=== PATIENT | male | born 1965 | race Caucasian/White ===

== ENCOUNTER 2020-02-16 13:24 | Outpatient (CLI) | payer BC, SELFPAY ==
--- NOTE | ~2020-02-16 | MR_ITS ---
EXAMINATION: MR brain/brain stem wo con DATE: 02/16/2020 14:25 INDICATION: Dizziness. Anterior headache. TECHNIQUE: Magnetic resonance imaging (MRI) of the brain and brainstem was performed without intraven ous contrast. Sequences included sagittal and axial T1-weighted FSE, axial diffusion-weighted FS EPI, axial T2*-weighted GRE, axial T2-weighted FLAIR Propeller, and axial T2-weighted Propeller. Apparent diffusion coefficient (ADC) maps were created. COMPARISON: None. FINDINGS: There is no intracranial hemorrhage, acute infarction, or abnormal intracranial mass lesion . There are scattered areas of nonspecific increased T2-weighted signal intensity in the cerebral whi te matter, which is within normal limits for the patient's age. The ventricles are normal in size. Th e orbits are normal. The paranasal sinuses are clear. The mastoid air cells are normal. IMPRESSION: 1. Normal aging brain. Reviewed, dictated and finalized at location A. IMPRESSION: 1. Normal aging brain.
== END 2020-02-16 13:25 | disposition home or self-care (01) ==
PROVIDERS: PCP Family Medicine; Visit Provider Family Medicine
DX: R42 Dizziness and giddiness (principal)
CPT/HCPCS: 70551

== ENCOUNTER 2024-01-31 00:30 | Day surgery (SDC) | payer BC, SELFPAY ==
[2024-01-20 12:57] VITALS: BMI 25.7
[2024-01-31 06:27] VITALS: BP 122/72; PULSE 77; RESP 18; TEMP 36.1; O2SAT 97
[2024-01-31] MEDS: LACTATED RINGERS 1,000 ML 150 ML IV CONT (06:39)
--- NOTE | 2024-01-31 07:21 | WPDANESEPPF ---
Anes - Initial Pre Proc Eval Procedure: Operation Date: 01/31/24 07:30 Proposed Procedures p Screening Colonoscopy - Dallas Lima MD Date/Time: 01/31/24 07:21 Surgeon: Dallas Lima MD Pre Op Diagnosis: neoplasm screening Patient Data Age: 58 Gender: M Height: 1.88 m Weight: 89.4 kg Last Vital Signs Temp 97 F L 01/31/24 06:27 Pulse 77 01/31/24 06:27 Resp 18 01/31/24 06:27 BP 122/72 01/31/24 06:27 Pulse Ox 97 01/31/24 06:27 O2 Del Method Room Air 01/31/24 06:27 Allergies Allergy/AdvReac Type Severity Reaction Status Date / Time clavulanic acid Allergy Mild Rash Verified 01/31/24 06:26 cyclobenzaprine AdvReac Mild hoarse Verified 01/31/24 06:26 voice Home Medications Medication Instructions Recorded Confirmed Type rosuvastatin 5 mg tablet 5 mg PO DAILY #90 tabs 10/20/23 01/20/24 Rx sildenafil 50 mg tablet (Viagra) 50 mg PO DAILY PRN sexual activity 11/22/23 01/20/24 Rx #30 tabs Bacillus coagulans 2 billion 1 cap PO DAILY 01/20/24 01/20/24 History cell-calcium 140 mg capsule (Digestive Advantage Probiotic) cholecalciferol (vitamin D3) 50 100 mcg PO DAILY 01/20/24 01/20/24 History mcg (2,000 unit) tablet (Vitamin D3) glucosamine sulf dipot 2 cap PO DAILY 01/20/24 01/20/24 History chlr,msm,chond 550 mg-C 30 mg-geo 1 mg capsule (Glucosamine Chondroitin) Patient hx anesthesia problems: none Family hx anesthesia problems: none Results Review: All pre-operative results and documents have been reviewed as part of the pre-operative evaluation. [facility] Past Medical History Medical History Erectile dysfunction History of kidney stones Surgical History Surgical History History of lithotripsy Family History Family History Sibling Neuroblastoma Father Hypertension Mother Crohn's disease Social History Social History Smoking status: Never smoker Second hand tobacco smoke exposure: No Alcohol intake: current Substance use: never Substance use type: does not use Living arrangements: with family Occupation/Education: occupation Gender identity (if verbalized by the patient): Male Sexual Orientation (if Verbalized by the Patient): Straight or Heterosexual Spiritual care concerns: No Anes - Eval Final PreProcedure Day of Procedure 01/31/24 07:21 Patient weight: normal Heart: regular rate and rhythm Lungs: clear to auscultation Airway: Mallampati scale class II Neurological: alert and oriented Last oral intake: >/= 8 hours ASA classification: II Emergent: no Anesthetic plan: proceed Anesthesia type and monitoring: general GIVS and standard monitoring Results Review: All pre-operative results and documents have been reviewed as part of the pre-operative evaluation. Informed Consent: The patient's anesthetic plan and its attendant risks and benefits were discussed with the patient/family/POA. Questions were solicited and answers provided to the satisfaction of the patient/family/POA.
--- NOTE | 2024-01-31 07:30 | PM.HPGS ---
History of Present Illness History of Present Illness Consent: Risks, benefits, and alternatives have been discussed and questions answered. Patient agrees to proceed with procedure. Chief complaint: neoplasm screening Narrative: Clovis Arzate is a 58 year old male here for screening colonoscopy, last one about 10 years ago Review of Systems Review of Systems: All systems reviewed & are unremarkable except as noted in HPI and below PMFSH Past Medical History Medical History (Updated 01/31/24 @ 07:32 by Dallas Lima MD) Colon cancer screening Erectile dysfunction History of kidney stones Surgical History Surgical History History of lithotripsy Family History Family History Sibling Neuroblastoma Father Hypertension Mother Crohn's disease Social History Social History Smoking status: Never smoker Second hand tobacco smoke exposure: No Alcohol intake: current Substance use: never Substance use type: does not use Living arrangements: with family Occupation/Education: occupation Gender identity (if verbalized by the patient): Male Sexual Orientation (if Verbalized by the Patient): Straight or Heterosexual Spiritual care concerns: No Meds Home Medications and Allergies Home Medications Medication Instructions Recorded Confirmed Type rosuvastatin 5 mg tablet 5 mg PO DAILY #90 tabs 10/20/23 01/20/24 Rx sildenafil 50 mg tablet (Viagra) 50 mg PO DAILY PRN sexual activity 11/22/23 01/20/24 Rx #30 tabs Bacillus coagulans 2 billion 1 cap PO DAILY 01/20/24 01/20/24 History cell-calcium 140 mg capsule (Digestive Advantage Probiotic) cholecalciferol (vitamin D3) 50 100 mcg PO DAILY 01/20/24 01/20/24 History mcg (2,000 unit) tablet (Vitamin D3) glucosamine sulf dipot 2 cap PO DAILY 01/20/24 01/20/24 History chlr,msm,chond 550 mg-C 30 mg-geo 1 mg capsule (Glucosamine Chondroitin) Allergies Allergy/AdvReac Type Severity Reaction Status Date / Time clavulanic acid Allergy Mild Rash Verified 01/31/24 06:26 cyclobenzaprine AdvReac Mild hoarse Verified 01/31/24 06:26 voice Vital Signs Vital Signs - 24 hr 01/31/24 06:27 Temperature 97 F L Pulse Rate 77 Respiratory Rate 18 Blood Pressure 122/72 Pulse Oximetry 97 Oxygen Delivery Room Air Exam Const: General: comfortable and no acute distress HENMT: Face/Nose/Sinus: Normal nares present Eyes: General: appearance normal, both eyes and all related structures Neck: Neck: no JVD Resp: Auscultation: clear to auscultation bilaterally Cardio: Rate: regular rate Rhythm: regular rhythm GI: Inspection: non-distended GI Palp: Yes Soft to palpation Skin: General skin exam: normal color Neuro: General: gait normal Speech: normal speech Extrem: General: normal to inspection Psych: Mental Status: mental status grossly normal Assessment and Plan Assessment and plan (1) Colon cancer screening: Code(s): Z12.11 - Encounter for screening for malignant neoplasm of colon Status: Acute Assessment and Plan: colonoscopy
[2024-01-31 07:44] VITALS: BP 97/62; PULSE 74; RESP 18; O2SAT 97
[2024-01-31 07:54] VITALS: BP 97/63; PULSE 69; RESP 18; O2SAT 96
[2024-01-31 08:01] VITALS: BP 113/74; PULSE 67; RESP 18; O2SAT 97
== END 2024-01-31 08:15 | disposition home or self-care (01) ==
PROVIDERS: PCP Family Medicine; Visit Provider Internal Medicine Gastroenterology
PROC: 0DJD8ZZ Inspection of Lower Intestinal Tract, Via Natural or Artificial Opening Endoscopic (ICD-10-PCS; CPT 45378; principal; 2024-01-31 07:30)
DX: Z12.11 Encounter for screening for malignant neoplasm of colon (principal); K64.8 Other hemorrhoids
CPT/HCPCS: 45378; J2704; J7120

== ENCOUNTER 2024-03-03 06:45 | Emergency (ER) | payer BC, SELFPAY ==
--- NOTE | ~2024-03-03 | CT_ITS ---
EXAMINATION: CT abdomen pelvis wo con DATE: 03/03/2024 07:53 INDICATION: Left lower quadrant abdominal pain. TECHNIQUE: Computed tomography (CT) of the abdomen and pelvis was performed without intravenous contr ast. Automated exposure control and iterative reconstruction technique were employed. The dose-length product was 497.98 mGy-cm. COMPARISON: CT abdomen and pelvis 01/25/2019 FINDINGS: The visualized portions of the lung bases demonstrate minimal atelectasis. No pleural effus ion. The heart size is normal. No pericardial effusion. There is a small sliding hiatal hernia. The l iver, gallbladder, spleen, pancreas, adrenal glands, and right kidney are normal. There is a 2 mm sto ne in left kidney. There is mild left hydronephrosis and hydroureter. There is a 6 mm stone at left u reterovesicular junction. There is a small left inguinal hernia containing fat. The prostate is mildl y enlarged. There are no dilated loops of bowel. The appendix is normal. There are no pathologically enlarged lymph nodes. There is no free intraperitoneal fluid. There is mild thoracic and lumbar spond ylosis. IMPRESSION: 1. 6 mm stone at left ureterovesicular junction with mild left hydronephrosis and hydroureter. 2. 2 mm nonobstructing left kidney stone. Reviewed, dictated and finalized at location A. IMPRESSION: 1. 6 mm stone at left ureterovesicular junction with mild left hydronephrosis a nd hydroureter. 2. 2 mm nonobstructing left kidney stone.
[2024-03-03 06:51] VITALS: BP 139/95; PULSE 63; RESP 18; TEMP 36.6; O2SAT 100
[2024-03-03 07:04] LABS: Basophils Absolute Auto 0.1 K/mm3 (0.0-0.1); Basophils Percent Auto 0.7 % (0.2-1.2); Eosinophils Absolute Auto 0.3 K/mm3 (0-0.3); Eosinophils Percent Auto 3.4 % (0-4.4); Hematocrit 43.8 % (42.0-52.0); Hemoglobin 14.8 g/dL (14.0-18.0); Immature Granulocyte Absolute 0.02 K/mm3 (0.00-0.031); Immature Granulocyte Percent A 0.3 % (0-0.5); Lymphocytes Absolute Auto 2.14 K/mm3 (0.9-3.2); Lymphocytes Percent Auto 28.2 % (18.3-44.2); Mean Corpuscular HGB Conc 33.8 g/dl (32-36); Mean Corpuscular Hemoglobin 30.1 pg (26-34); Mean Corpuscular Volume 89.2 fl (80-100); Mean Platelet Volume 10.9 fl (7.4-10.4); Monocytes Absolute Auto 0.9 K/mm3 (0.1-0.6); Monocytes Percent Auto 11.2 % (2.6-8.5); Neutrophils Absolute Auto 4.3 K/mm3 (1.3-6.7); Neutrophils Percent Auto 56.2 % (45.5-73.1); Platelet Count Result 258 k/mm3 (150-375); Red Blood Count 4.91 M/mm3 (4.6-6.20); Red Cell Distribution Width 11.9 % (11.5-14.5); White Blood Count 7.6 K/mm3 (4.5-10.0)
[2024-03-03 07:12] VITALS: BP 124/78; PULSE 71; RESP 16; O2SAT 100
[2024-03-03 07:13] LABS: Alanine Aminotransferase 32 U/L (6-50); Albumin Level 4.8 g/dL (3.5-5.1); Alkaline Phosphatase 90 U/L (38-126); Anion Gap 10 mmol/L (4-12); Aspartate Amino Transferase 37 U/L (17-59); Bilirubin,Total 0.8 mg/dL (0.2-1.3); Blood Urea Nitrogen 18 mg/dL (9-20); Calcium 9.3 mg/dL (8.4-10.2); Carbon Dioxide 23 mmol/L (22-30); Chloride 105 mmol/L (98-107); Estimated CRCL calculation 86 ml/min; Estimated Glomerular Filt Rate > 60; Glucose 118 mg/dL (65-110); Potassium 4.1 mmol/L (3.4-5.0); Sodium 138 mmol/L (137-145)
[2024-03-03 07:19] LABS: Bacteria Urine None Seen /hpf; Non Pathogenic Casts 0-2; RBC Urine >100 /hpf (0-2); Squamous Epithelial Cell Urine None Seen /hpf (Few)
--- NOTE | 2024-03-03 07:19 | ED.MALEGU ---
HPI - Male Genitourinary General Chief complaint: Urogenital-Male Stated complaint: flank pain Time Seen by Provider: 03/03/24 06:58 History of Present Illness HPI Narrative: This is a 58-year-old male, with history of kidney stones hyperlipidemia, presents to the emergency department complaining of left lower quadrant abdominal pain beginning this morning. The patient describes the pain as dull and intermittently cramping at minimum 3/10 at maximum 7/10. He states this feels very similar to previous kidney stones. This is accompanied by urinary urgency and 1 episode of hematuria. He denies fevers nausea/vomiting, chest pain, weakness/numbness and has no other complaints at this time. Related Data Home Medications Medication Instructions Recorded Confirmed Bacillus coagulans 2 billion 1 cap PO DAILY 01/20/24 01/20/24 cell-calcium 140 mg capsule (Digestive Advantage Probiotic) cholecalciferol (vitamin D3) 50 100 mcg PO DAILY 01/20/24 01/20/24 mcg (2,000 unit) tablet (Vitamin D3) glucosamine sulf dipot 2 cap PO DAILY 01/20/24 01/20/24 chlr,msm,chond 550 mg-C 30 mg-geo 1 mg capsule (Glucosamine Chondroitin) Allergies Allergy/AdvReac Type Severity Reaction Status Date / Time clavulanic acid Allergy Mild Rash Verified 03/03/24 07:12 Penicillins Allergy Unknown Verified 03/03/24 07:13 cyclobenzaprine AdvReac Mild hoarse Verified 03/03/24 07:12 voice Review of Systems Review of Systems: All systems reviewed & are unremarkable except as noted in HPI and below PMFSH Past Medical History Medical History Colon cancer screening Erectile dysfunction History of kidney stones Surgical History Surgical History History of lithotripsy Family History Family History Sibling Neuroblastoma Father Hypertension Mother Crohn's disease Social History Social History Smoking status: Never smoker Second hand tobacco smoke exposure: No Alcohol intake: current Substance use: never Substance use type: does not use Living arrangements: with family Occupation/Education: occupation Gender identity (if verbalized by the patient): Male Sexual Orientation (if Verbalized by the Patient): Straight or Heterosexual Spiritual care concerns: No Exam Narrative: GENERAL: Well-developed, well-nourished, and in no acute distress. HEAD: Normocephalic, atraumatic. EYES: PERRLA and EOMI. CHEST: Clear to auscultation. No respiratory distress. No wheezes rales or rhonchi HEART: Regular rate and rhythm. No murmur heard. Normal peripheral pulses. ABDOMEN: Soft, mild left lower quadrant abdominal tenderness to palpation without rebound or guarding, nondistended, normal active bowel sounds. EXTREMITIES: Normal range of motion. No edema. SKIN: Warm, dry, no rash. NEURO: Alert and oriented x3. No focal deficit. Moving all 4 limbs spontaneously PSYCH: Normal mood and affect. Course Course Emergency Course: 08:08 - CBC unremarkable. Chemistries unremarkable. UA demonstrates hematuria but is not concerning for urinary tract infection. CT abdomen pelvis demonstrates a 6 mm stone at the left UVJ and a 2 mm nonobstructing left kidney stone. On re-evaluation, the patient states his pain has significantly improved with IV Toradol. Will discharge with pain medications, tamsulosin and referral to Urology (the patient has been previously managed by Dr. Leyva). Will discharge. I discussed the findings and recommendations with the patient. Discussed return and emergency precautions including signs/symptoms of acute abdomen intractable vomiting. The patient voiced understanding and agreement with the plan. All questions answered to his satisfaction. Vital Signs Vital signs: Vital Sign
[2024-03-03] MEDS: LACTATED RINGERS 1,000 ML 999 ML IV CONT (07:22)
[2024-03-03] MEDS: KETOROLAC 30 MG/ML VIAL (*BKC) IV PUSH (07:24)
[2024-03-03 07:26] LABS: Add Urine Microscopic? YES; Appearance Urine Turbid (Clear); Bilirubin Urine 1+ (Negative); Blood Urine 3+ (Negative); Color Urine Red (Yellow); Glucose Urine UA Negative (Negative); Ketones Urine Negative (Negative); Leukocyte Esterase Ur 1+ LEU/UL (Negative); Nitrate Urine Negative (Negative); Protein Urine 1+ mg/dL (Negative); Specific Grav Ur 1.021 (1.001-1.035); Urobilinogen Urine 0.2 mg/dL (<2.0)
[2024-03-03 08:31] VITALS: BP 125/81; PULSE 77; RESP 22; TEMP 36.6; O2SAT 97
== END 2024-03-03 08:32 | disposition home or self-care (01) ==
PROVIDERS: Emergency Provider Preventive Medicine Aerospace Medicine; PCP Family Medicine
DX: N20.0 Calculus of kidney (principal); R10.32 Left lower quadrant pain; Z87.442 Personal history of urinary calculi
CPT/HCPCS: 36415; 74176; 80053; 81001; 85025; 87086; 96361; 96374; 99284; J1885; J7120